=== PATIENT | male | born 1975 | race Caucasian/White ===

== ENCOUNTER 2021-11-01 07:25 | Day surgery (SDC) | payer BC ==
[~2021-11-01 07:25] MED LIST: Lactated Ringers 1,000 ML IV SCH
[2021-11-01] MEDS ORDERED: Propofol 200 MG/20 ML SDV ONE ×2 (07:28→09:11)
[2021-11-01] MEDS ORDERED: Midazolam 1 MG/ML 2 ML SDV ONE (07:28)
== END 2021-11-01 09:45 | disposition home or self-care (01) ==
LOC: MW.SDS 07:25
PROVIDERS: ATTEND Surgery
DX: K29.90 Gastroduodenitis, unspecified, without bleeding (principal); K31.A0 Gastric intestinal metaplasia, unspecified; F17.210 Nicotine dependence, cigarettes, uncomplicated; K21.9 Gastro-esophageal reflux disease without esophagitis; E66.9 Obesity, unspecified; Z79.899 Other long term (current) drug therapy; Z98.890 Other specified postprocedural states; Z68.37 Body mass index [BMI] 37.0-37.9, adult
CPT/HCPCS: 43239; J2250; J2704; J7120; 00731